=== PATIENT | female | born 1935 | race Caucasian/White ===

== ENCOUNTER 2021-10-26 21:17 | Observation (INO) ==
[2021-10-26] MEDS ORDERED: traMADol HCL 50 MG TABLET PO STA (22:27)
[2021-10-26] MEDS ORDERED: ACETAMINOPHEN 325 MG TAB PO STA (22:27)
--- NOTE | 2021-10-26 23:35 | CT Scan Report ---
CT SCAN OF THE BRAIN WITHOUT IV CONTRAST CLINICAL HISTORY: Fall. Head injury COMPARISON STUDY: No priors. TECHNIQUE: Unenhanced axial CT scan of the brain is performed from the vertex to the skull base. A do se lowering technique was utilized adhering to the principles of ALARA. CT DOSE: 537.48 mGy.cm FINDINGS: Brain parenchyma: There are age-related involutional changes noting mild subcortical and periventric ular microangiopathic change. There is no hemorrhage, mass effect, or evidence of acute territorial i schemia by CT criteria. Rosas-white matter differentiation is preserved. No extra-axial fluid collecti on is seen. Mineralization is noted in the basal ganglia. Ventricles, sulci, cisterns: Prominent secondary to involutional change. Intracranial vasculature: There is atherosclerotic calcification of the cavernous carotid and vertebr al arteries. Calvarium: The skeletal structures are osteopenic. No depressed calvarial fracture is identified. Sinuses and mastoids: There is mild mucosal thickening in the left ethmoid sinuses. The remaining vis ualized paranasal sinuses are clear. The mastoid air cells are well pneumatized. Orbits: The bony orbits are grossly intact. IMPRESSION: There is no hemorrhage, mass effect, or evidence of acute territorial ischemia by CT kang valadez. ACT 112: Negative or not required by law. Electronically signed by: Edilberto Weathers M.D. 10/26/2021 11:33 PM
--- NOTE | 2021-10-27 00:46 | CT Scan Report ---
CT SCAN OF THE RIGHT KNEE WITHOUT IV CONTRAST CLINICAL HISTORY: Fall. Right knee injury. COMPARISON STUDY: Radiographs of the right knee dated 10/26/2021. TECHNIQUE: CT scan of the right knee is performed from the distal femur to the proximal tibia and fi bula. Images are reviewed in the axial, sagittal, and coronal planes. IV contrast was not administere d for this examination. 3-D reformats are created and assessed. A dose lowering technique was utiliz ed adhering to the principles of ALARA. CT DOSE: 289.69 mGy.cm FINDINGS: The skeletal structures are osteopenic. There is a depressed fracture of the posterior tibi al plateau. This extends from the tibial spine into the medial tibial plateau. Fragments of the poste rior aspect of the medial tibial plateau are depressed by up to 5 mm. The distal femur, the proximal fibula, and the patella are intact. There is lipohemarthrosis. Prepatellar soft tissue edema is noted . There is generalized atrophy of the regional musculature. No organized hematoma is identified. IMPRESSION: 1. Depressed fracture of the posterior aspect of the medial tibial plateau as above with associated l ipohemarthrosis. 2. No additional fracture is identified. ACT 112: Negative or not required by law. Electronically signed by: Edilberto Weathers M.D. 10/27/2021 12:44 AM
--- NOTE | 2021-10-27 00:51 | XRay Report ---
RIGHT HIP 2 VIEWS CLINICAL HISTORY: Fall. Right leg pain. FINDINGS: AP and frog-leg views of the right hip are obtained. No prior studies are available for [facility] at the time of dictation. The skeletal structures are osteopenic. No fracture is seen involvi ng the right hip or the visualized right hemipelvis. Minimal degenerative joint space narrowing is se en in the right hip. Degenerative sclerosis is seen in the right sacroiliac joint. The overlying soft tissues are within normal limits. IMPRESSION: No acute bony abnormality is identified. Electronically signed by: Edilberto Weathers M.D. 10/27/2021 12:49 AM
--- NOTE | 2021-10-27 00:52 | XRay Report ---
RIGHT KNEE 2 VIEWS CLINICAL HISTORY: Fall with right knee injury. FINDINGS: AP and crosstable lateral views of the right knee are obtained. No prior studies are availa ble for comparison at the time of dictation. The skeletal structures are osteopenic. There is a large joint effusion with evidence of lipohemarthrosis. There is likely a fracture of the tibial plateau. No additional fracture is seen. Mild prepatellar soft tissue swelling is noted. IMPRESSION: Lipohemarthrosis with suspected tibial plateau fracture. Electronically signed by: Edilberto Weathers M.D. 10/27/2021 12:51 AM
--- NOTE | 2021-10-27 01:48 | Emergency Department Note ---
Impression & Plan Atrial fibrillation, controlled ED Provider Note CHIEF COMPLAINT: Fall, right knee pain HISTORY OF PRESENT ILLNESS: This 86-year-old female patient presents to the emergency department via private vehicle after falling at a restaurant. The patient states she may have tripped over her shoe and fell onto her right knee and then onto her abdomen and chest. She complains mostly of a right knee discomfort and inability to walk without assistance. Patient states she does take Eliquis due to a history of atrial fibrillation. She denies hitting her head or having any neck discomfort. Patient did not lose consciousness. She states she is visiting our area from [place] because her daughter is graduating with a masters degree tomorrow. REVIEW OF SYSTEMS: A review of systems was performed with positives and pertinent negatives listed in the history of present illness. 10 systems were reviewed and are otherwise negative. ALLERGIES: see below MEDICATIONS: see below PMH: see below SOCIAL HISTORY: see below DDx: Fracture, dislocation, contusion, intra-abdominal, pneumothorax, intrathoracic, intracranial, neurologic, compartment syndrome, rhabdomyolysis, as well as other pathologies. PHYSICAL EXAM: Vital signs reviewed. General: Well-appearing 86 yo female, in no significant distress. HEENT: No scleral icterus, PERRLA, neck supple. Atraumatic. Cardiovascular: Regular rate and rhythm, systolic ejection murmur Pulmonary: Clear to auscultation bilaterally, normal work of breathing. Abdomen: Soft, nontender, nondistended, positive bowel sounds. Musculoskeletal: Atraumatic, no peripheral edema. tender to palpation of proximal R tibial without deformity or significant hematoma. Full range of motion of the right knee. There is no ligamentous laxity appreciated to the right knee. Full range of motion of the right hip and no discomfort to pelvic rocking. Neurologic: Patient awake alert and oriented x 3, speech is clear Skin: Warm, dry, no rash EMERGENCY DEPARTMENT COURSE/MDM: Patient was evaluated and appeared to be in no significant distress. Physical examination reveals R knee contusion, XR concerning for abnl along the proximal tibia. CT imaging was ordered of the right knee and is consistent with a tibial plateau fracture. Please see the f ull read below. Patient will not be able to tolerate a nonweightbearing status due to her age and physical condition. She was placed in a knee immobilizer. IV access was ordered and laboratory work was drawn. The patient was discussed with the hospitalist service for evaluation and further management. Patient will likely need at minimum PT OT consultation and orthopedic evaluation. Patient and are aware of this plan and agreed. MONITORING: An order for cardiac monitoring was placed and the patient is noted to be in a normal sinus rhythm at 71 beats per minute. RADIOLOGY: See below EKG: NSR at 76 bpm, prolonged QTC, normal ST segments. + LVH. no PVC, no PAC. No previous available. DISPOSITION: Admit Past Med/Surg History Medical History (Updated 10/27/21 @ 01:39 by Diane Geller MD) Glaucoma Hypertension Social History (Updated 10/27/21 @ 01:47 by Diane Geller MD) Smoking Status: Never smoker marital status: Current Living Situation: Spouse Current Living Situation Comment: Lives in [place] Feels Safe at Home: Yes Results & Data (ED) Vital Signs Vital Signs - 24 hr 10/26/21 21:19 10/26/21 21:22 Temperature 36.9 C Temperature Source Temporal Artery Scan Pulse Rate 71 Respiratory Rate 18 16 Respiratory Effort / Characteristics Non-Labored Spontaneous Respiratory Depth Normal Blood Pressure 173/73 H Blood Pressure Mean 106 Pulse Oximetry 95 96 Oxygen Delivery Method Room Air Sepsis Recent Fever Within 48 Hours No Sepsis New/Unexplained Change in Mental Status No Sepsis Action Taken by Nursing No Action Required Home Medications Current Medication List: was personally reviewed by me Laboratory Data Attestation: I reviewed the patient's lab results. Administered Medications Discontinued Medications Acetaminophen (Acetaminophen 325 Mg Tab) 650 mg PO NOW STA Stop: 10/26/21 22:28 Last Admin: 10/26/21 22:53 Dose: 650 mg Documented by: [id number] Tramadol HCl (Tramadol Hcl 50 Mg Tablet) 50 mg PO NOW STA Stop: 10/26/21 22:28 Last Admin: 10/26/21 22:53 Dose: 50 mg Documented by: [id number] Imaging Data Radiologist's Impression: Head CT 10/26/21 22:27 CT SCAN OF THE BRAIN WITHOUT IV CONTRAST CLINICAL HISTORY: Fall. Head injury COMPARISON STUDY: No priors. TECHNIQUE: Unenhanced axial CT scan of the brain is performed from the vertex to the skull base. A dose lowering technique was utilized adhering to the principles of ALARA. CT DOSE: 537.48 mGy.cm FINDINGS: Brain parenchyma: There are age-related involutional changes noting mild subcortical and periventricular microangiopathic change. There is no hemorrhage, mass effect, or evidence of acute territorial ischemia by CT criteria. Rosas- white matter differentiation is preserved. No extra-axial fluid collection is seen. Mineralization is noted in the basal ganglia. Ventricles, sulci, cisterns: Prominent secondary to involutional change. Intracranial vasculature: There is atherosclerotic calcification of the cavernous carotid and vertebral arteries. Calvarium: The skeletal structures are osteopenic. No depressed calvarial fracture is identified. Sinuses and mastoids: There is mild mucosal thickening in the left ethmoid sinuses. The remaining visualized paranasal sinuses are clear. The mastoid air cells are well pneumatized. Orbits: The bony orbits are grossly intact. IMPRESSION: There is no hemorrhage, mass effect, or evidence of acute territorial ischemia by CT criteria. ACT 112: Negative or not required by law. Electronically signed by: Edilberto Weathers M.D. 10/26/2021 11:33 PM Hip X-Ray 10/26/21 22:27 RIGHT HIP 2 VIEWS CLINICAL HISTORY: Fall. Right leg pain. FINDINGS: AP and frog-leg views of the right hip are obtained. No prior studies are available for comparison at the time of dictation. The skeletal structures are osteopenic. No fracture is seen involving the right hip or the visualized right hemipelvis. Minimal degenerative joint space narrowing is seen in the right hip. Degenerative sclerosis is seen in the right sacroiliac joint. The overlying soft tissues are within normal limits. IMPRESSION: No acute bony abnormality is identified. Electronically signed by: Edilberto Weathers M.D. 10/27/2021 12:49 AM Knee X-Ray 10/26/21 22:27 RIGHT KNEE 2 VIEWS CLINICAL HISTORY: Fall with right knee injury. FINDINGS: AP and crosstable lateral views of the right knee are obtained. No prior studies are available for comparison at the time of dictation. The skeletal structures are osteopenic. There is a large joint effusion with evidence of lipohemarthrosis. There is likely a fracture of the tibial plateau. No additional fracture is seen. Mild prepatellar soft tissue swelling is noted. IMPRESSION: Lipohemarthrosis with suspected tibial plateau fracture. Electronically signed by: Edilberto Weathers M.D. 10/27/2021 12:[address] 10/27/21 00:08 CT SCAN OF THE RIGHT KNEE WITHOUT IV CONTRAST CLINICAL HISTORY: Fall. Right knee injury. COMPARISON STUDY: Radiographs of the right knee dated 10/26/2021. TECHNIQUE: CT scan of the right knee is performed from the distal femur to the proximal tibia and fibula. Images are reviewed in the axial, sagittal, and coronal planes. IV contrast was not administered for this examination. 3-D reformats are created and assessed. A dose lowering technique was utilized adhering to the principles of ALARA. CT DOSE: 289.69 mGy.cm FINDINGS: The skeletal structures are osteopenic. There is a depressed fracture of the posterior tibial plateau. This extends from the tibial spine into the medial tibial plateau. Fragments of the posterior aspect of the medial tibial plateau are depressed by up to 5 mm. The distal femur, the proximal fibula, and the patella are intact. There is lipohemarthrosis. Prepatellar soft tissue edema is noted. There is generalized atrophy of the regional musculature. No organized hematoma is identified. IMPRESSION: 1. Depressed fracture of the posterior aspect of the medial tibial plateau as above with associated lipohemarthrosis. 2. No additional fracture is identified. ACT 112: Negative or not required by law. Electronically signed by: Edilberto Weathers M.D. 10/27/2021 12:44 AM Blood Pressure Blood Pressure Findings: Elevated blood pressure Blood Pressure Disposition: elevated BP felt to be situational Discharge Plan Visit Data Chief Complaint: Fall Stated Complaint: FELL,ON BLOOD THINNER,R KNEE INJURY, HEARD CRACK ED Provider: Diane Geller Discharge Problem: Atrial fibrillation, controlled Forms Stand Alone Forms: [facility] Referrals Referrals: PCP,NO [Primary Care Provider] -
[2021-10-27 02:21] LABS: Basophils # (auto) 0.02 K/uL (0-0.2); Basophils % (auto) 0.2 %; Eosinophils # (auto) 0.36 K/uL (0-0.5); Eosinophils % (auto) 3.5 %; Hematocrit (blood only) 39.9 % (37-47); Hemoglobin 13.1 g/dL (12.0-16.0); Immature Granulocytes # (auto) 0.04 K/uL (0.00-0.02); Immature Granulocytes % (auto) 0.4 %; Lymphocytes # (auto) 2.28 K/uL (1.2-3.4); Lymphocytes % (auto) 22.1 %; Mean Corpuscular Hemoglobin 31.5 pg (25-34); Mean Corpuscular Hgb Conc 32.8 g/dL (32-36); Mean Corpuscular Volume 95.9 fL (80-100); Mean Platelet Volume 10.4 fL (7.4-10.4); Monocytes % (auto) 9.7 %; Neutrophils % (auto) 64.1 %; Platelet Count 280 K/uL (130-400); RDW Coefficient of Variation 13.4 % (11.5-14.5); RDW Standard Deviation 46.8 fL (36.4-46.3); Red Blood Count 4.16 M/uL (4.2-5.4)
[2021-10-27 02:37] LABS: Alanine Aminotransferase 20 U/L (7-52); Albumin Globulin Ratio 1.2 (0.9-2); Albumin Level 3.7 gm/dl (3.4-5.0); Alkaline Phosphatase 107 U/L (34-104); Anion Gap 9 (3-11); Aspartate Aminotransferase 23 U/L (13-39); BUN Creatinine Ratio 21.5 (10-20); Bilirubin,Total 0.3 mg/dl (0.2-1.0); Blood Urea Nitrogen 14 mg/dl (6-23); Calcium 8.7 mg/dl (8.5-10.1); Carbon Dioxide 22 mmol/L (21-32); Chloride 112 mmol/L (98-107); Est GFR (African American) 93.8 ml/min; Globulin 3.2 gm/dl (2.5-4.0); Glucose 113 mg/dl (70-99(Fasting)); Potassium 3.7 mmol/L (3.5-5.1); Sodium 143 mmol/L (136-145); Total Protein 6.9 gm/dl (6.0-8.3)
--- NOTE | 2021-10-27 02:47 | History & Physical Report ---
Date of Service October 27, 2021 Assessment & Plan (1) Tibial plateau fracture, right: Plan: Acute right tibial plateau fracture- Continue knee immobilizer Acetaminophen 650 mg p.o. every 6 hours as needed for mild pain or fever Tramadol 50 mg p.o. every 4 hours as needed moderate pain Morphine sulfate 2 mg IV every 4 hours as needed severe pain Consult orthopedic surgery Consult social work (2) Glaucoma: Plan: Continue usual eyedrops (3) Hypertension: Plan: Continue valsartan with hold parameters (4) Vision loss, left eye: Plan: Continue Eliquis (5) Hyperlipidemia: Plan: Continue atorvastatin (6) Allergic rhinitis: Plan: Allergic rhinitis/asthma- Continue Ventolin HFA 2 puffs every 4 hours as needed, loratadine 10 mg daily and montelukast 10 mg daily (7) Asthma: Plan: See above History of Present Illness Chief Complaint: The patient was brought to the emergency department with acute right knee pain that occurred immediately after she tripped over her shoe and fell while at a local restaurant Primary Care Provider: NO PCP The patient is an 86-year-old female with a past medical history including glaucoma, hyperlipidemia, allergic rhinitis, hypertension and history of acute vision loss in left eye for which she is on Eliquis. She is in town to see a family member presenting with an MS degree from [employer], however, while at a local restaurant, she tripped over her shoe, landing on her right knee, and sustaining immediate pain. X-ray in the emergency department suggested a tibial plateau fracture, which was confirmed on CT which showed a depressed fracture of the medial tibial plateau and associated lipohemarthrosis. The patient was placed on knee immobilizer in ED, and referred for evaluation for admission. She denies any other trauma associated with the fall. Allergies Allergy/AdvReac Type Severity Reaction Status Date / Time Environmental Allergy Sneezing, Uncoded 10/27/21 02:02 itchy eyes Home Medications Medication Instructions Recorded Confirmed Type albuterol sulfate 90 mcg/actuation 2 puff INHALATION Q4 PRN 10/27/21 10/27/21 History aerosol inhaler (Ventolin HFA) apixaban 2.5 mg tablet (Eliquis) 2.5 mg PO BID 10/27/21 10/27/21 History atorvastatin 20 mg tablet 20 mg PO DAILY 10/27/21 10/27/21 History cholecalciferol (vitamin D3) 25 25 mcg PO DAILY 10/27/21 10/27/21 History mcg (1,000 unit) tablet (Vitamin D3) coenzyme Q10 30 mg capsule (CoQ-10) 0 mg PO DAILY 10/27/21 10/27/21 History dorzolamide 22.3 mg-timolol 6.8 1 drp OPB TID 10/27/21 10/27/21 History mg/mL eye drops (Cosopt) latanoprost 0.005 % eye drops 1 drp OPB QPM 10/27/21 10/27/21 History loratadine 10 mg tablet (Claritin) 10 mg PO DAILY 10/27/21 10/27/21 History montelukast 10 mg tablet 10 mg PO DAILY 10/27/21 10/27/21 History peg 400-propylene glycol 0.4 %-0.3 1 drp OPB DIRECTED PRN 10/27/21 10/27/21 History % eye drops (Systane Ultra) valsartan 80 mg tablet 80 mg PO DAILY 10/27/21 10/27/21 History Past Med/Surg History Medical History (Updated 10/27/21 @ 04:47 by Glynn Jones MD) Allergic rhinitis Asthma Glaucoma Hyperlipidemia Hypertension Social History (Updated 10/27/21 @ 01:47 by Diane Geller MD) Smoking Status: Never smoker marital status: Current Living Situation: Spouse Current Living Situation Comment: Lives in [place] Feels Safe at Home: Yes Review of Systems Review of Systems: The patient denies chest pain, palpitations, shortness of breath, dyspnea on exertion, cough, lower extremity swelling, sore throat, fevers, chills, sweats, weight change, fatigue, nausea, vomiting, diarrhea , constipation, abdominal pain, pelvic pain, blood in urine or stool, dysuria, urinary frequency or urgency, lightheadedness, dizziness, headache, memory loss, loss of consciousness, rash, focal or generalized weakness, numbness or tingling in arms generalized arthralgias or myalgias, back or neck pain, or night sweats. The review of systems is otherwise negative other than for that already noted above, and at least 10 systems have been reviewed. Physical Exam Physical Exam: The patient is awake, alert and oriented 3, well developed and well nourished, normocephalic and atraumatic, lying in bed and in no acute distress. HEENT--PERRL, EOMI, mucous membranes and oropharynx normal. Neck--supple. No JVD. No bruits. Thyroid normal, trachea midline, no adenopathy. Heart--normal S1 and S2. No murmurs, rubs or gallops. Lungs--clear bilaterally, no respiratory distress, no accessory muscle use. Abdomen--normal bowel sounds and soft. Nontender. Nondistended, no hernias or masses, no organomegaly. Extremities--no cyanosis or clubbing. No edema. There are good distal pulses b/l. Dermatologic--normal skin turgor, normal color, no abnormal lymph nodes, no rash. Neurologic--cranial nerves II through XII grossly intact. Rheumatologic--right knee in immobilizer, otherwise normal exam Psychiatric--normal affect. Results & Data Results & Data ([facility]) Vital Signs (Past 12 Hours) Vital Signs Temp Pulse Pulse Resp BP BP Pulse Ox 10/27/21 01:00 70 16 165/85 H 95 10/26/21 21:22 36.9 C 71 16 173/73 H 96 10/26/21 21:19 18 95 Laboratory Results Laboratory Results WBC 10.30 K/uL (4.8-10.8) 10/27/21 01:50 RBC 4.16 M/uL (4.2-5.4) L 10/27/21 01:50 Hgb 13.1 g/dL (12.0-16.0) 10/27/21 01:50 Hct 39.9 % (37-47) 10/27/21 01:50 MCV 95.9 fL (80-100) 10/27/21 01:50 MCH 31.5 pg (25-34) 10/27/21 01:50 MCHC 32.8 g/dL (32-36) 10/27/21 01:50 RDW Std Deviation 46.8 fL (36.4-46.3) H 10/27/21 01:50 RDW Coeff of Jim 13.4 % (11.5-14.5) 10/27/21 01:50 Plt Count 280 K/uL (130-400) 10/27/21 01:50 MPV 10.4 fL (7.4-10.4) 10/27/21 01:50 Immature Gran % (Auto) 0.4 % 10/27/21 01:50 Neut % (Auto) 64.1 % 10/27/21 01:50 Lymph % (Auto) 22.1 % 10/27/21 01:50 [place] % (Auto) 9.7 % 10/27/21 01:50 Eos % (Auto) 3.5 % 10/27/21 01:50 Baso % (Auto) 0.2 % 10/27/21 01:50 Neut # (Auto) 6.60 K/uL (1.4-6.5) H 10/27/21 01:50 Lymph # (Auto) 2.28 K/uL (1.2-3.4) 10/27/21 01:50 [place] # (Auto) 1.00 K/uL (0.11-0.59) H 10/27/21 01:50 Eos # (Auto) 0.36 K/uL (0-0.5) 10/27/21 01:50 Baso # (Auto) 0.02 K/uL (0-0.2) 10/27/21 01:50 Immature Gran # (Auto) 0.04 K/uL (0.00-0.02) H 10/27/21 01:50 Sodium 143 mmol/L (136-145) 10/27/21 01:50 Potassium 3.7 mmol/L (3.5-5.1) 10/27/21 01:50 Chloride 112 mmol/L (98-107) H 10/27/21 01:50 Carbon Dioxide 22 mmol/L (21-32) 10/27/21 01:50 Anion Gap 9 (3-11) 10/27/21 01:50 BUN 14 mg/dl (6-23) 10/27/21 01:50 Creatinine 0.65 mg/dl (0.6-1.2) 10/27/21 01:50 Est Cr Clr Drug Dosing Not Reportable 10/27/21 01:50 Est GFR ( Amer) 93.8 ml/min 10/27/21 01:50 Est GFR (Non-Af Amer) 81.0 ml/min 10/27/21 01:50 BUN/Creatinine Ratio 21.5 (10-20) H 10/27/21 01:50 Glucose 113 mg/dl (70-99(Fasting)) H 10/27/21 01:50 Calcium 8.7 mg/dl (8.5-10.1) 10/27/21 01:50 Total Bilirubin 0.3 mg/dl (0.2-1.0) 10/27/21 01:50 AST 23 U/L (13-39) 10/27/21 01:50 ALT 20 U/L (7-52) 10/27/21 01:50 Alkaline Phosphatase 107 U/L (34-104) H 10/27/21 01:50 Total Protein 6.9 gm/dl (6.0-8.3) 10/27/21 01:50 Albumin 3.7 gm/dl (3.4-5.0) 10/27/21 01:50 Globulin 3.2 gm/dl (2.5-4.0) 10/27/21 01:50 Albumin/Globulin Ratio 1.2 (0.9-2) 10/27/21 01:50 SARS-CoV-2, RNA, NAAT NEGATIVE (NEGATIVE) 10/27/21 01:[address] 10/26/21 22:27 CT SCAN OF THE BRAIN WITHOUT IV CONTRAST CLINICAL HISTORY: Fall. Head injury COMPARISON STUDY: No priors. TECHNIQUE: Unenhanced axial CT scan of the brain is performed from the vertex to the skull base. A dose lowering technique was utilized adhering to the principles of ALARA. CT DOSE: 537.48 mGy.cm FINDINGS: Brain parenchyma: There are age-related involutional changes noting mild subcortical and periventricular microangiopathic change. There is no hemorrhage, mass effect, or evidence of acute territorial ischemia by CT criteria. Rosas- white matter differentiation is preserved. No extra-axial fluid collection is seen. Mineralization is noted in the basal ganglia. Ventricles, sulci, cisterns: Prominent secondary to involutional change. Intracranial vasculature: There is atherosclerotic calcification of the cavernous carotid and vertebral arteries. Calvarium: The skeletal structures are osteopenic. No depressed calvarial fracture is identified. Sinuses and mastoids: There is mild mucosal thickening in the left ethmoid sinuses. The remaining visualized paranasal sinuses are clear. The mastoid air cells are well pneumatized. Orbits: The bony orbits are grossly intact. IMPRESSION: There is no hemorrhage, mass effect, or evidence of acute territorial ischemia by CT criteria. ACT 112: Negative or not required by law. Electronically signed by: Edilberto Weathers M.D. 10/26/2021 11:33 PM Hip X-Ray 10/26/21 22:27 RIGHT HIP 2 VIEWS CLINICAL HISTORY: Fall. Right leg pain. FINDINGS: AP and frog-leg views of the right hip are obtained. No prior studies are available for comparison at the time of dictation. The skeletal structures are osteopenic. No fracture is seen involving the right hip or the visualized right hemipelvis. Minimal degenerative joint space narrowing is seen in the right hip. Degenerative sclerosis is seen in the right sacroiliac joint. The overlying soft tissues are within normal limits. IMPRESSION: No acute bony abnormality is identified. Electronically signed by: Edilberto Weathers M.D. 10/27/2021 12:49 AM Knee X-Ray 10/26/21 22:27 RIGHT KNEE 2 VIEWS CLINICAL HISTORY: Fall with right knee injury. FINDINGS: AP and crosstable lateral views of the right knee are obtained. No prior studies are available for comparison at the time of dictation. The skeletal structures are osteopenic. There is a large joint effusion with evidence of lipohemarthrosis. There is likely a fracture of the tibial plateau. No additional fracture is seen. Mild prepatellar soft tissue swelling is noted. IMPRESSION: Lipohemarthrosis with suspected tibial plateau fracture. Electronically signed by: Edilberto Weathers M.D. 10/27/2021 12:[address] 10/27/21 00:08 CT SCAN OF THE RIGHT KNEE WITHOUT IV CONTRAST CLINICAL HISTORY: Fall. Right knee injury. COMPARISON STUDY: Radiographs of the right knee dated 10/26/2021. TECHNIQUE: CT scan of the right knee is performed from the distal femur to the proximal tibia and fibula. Images are reviewed in the axial, sagittal, and coronal planes. IV contrast was not administered for this examination. 3-D refor mats are created and assessed. A dose lowering technique was utilized adhering to the principles of ALARA. CT DOSE: 289.69 mGy.cm FINDINGS: The skeletal structures are osteopenic. There is a depressed fracture of the posterior tibial plateau. This extends from the tibial spine into the medial tibial plateau. Fragments of the posterior aspect of the medial tibial plateau are depressed by up to 5 mm. The distal femur, the proximal fibula, and the patella are intact. There is lipohemarthrosis. Prepatellar soft tissue edema is noted. There is generalized atrophy of the regional musculature. No organized hematoma is identified. IMPRESSION: 1. Depressed fracture of the posterior aspect of the medial tibial plateau as above with associated lipohemarthrosis. 2. No additional fracture is identified. ACT 112: Negative or not required by law. Electronically signed by: Edilberto Weathers M.D. 10/27/2021 12:44 AM Code Status & VTE Plan Code Status Full code VTE Prophylaxis Plan VTE Prophylaxis will be ordered: Yes PG Care Time/CCT Total # of Minutes Spent Total Time Spent with Patient: Total time spent is greater than 50% in coordination of care (as documented) at patient's floor/unit and/or counseling patient: Coding Level of Care Code INT OBSERVATION CARE 70M LVL 3 Diagnoses Tibial plateau fracture, right S82.141A Glaucoma H40.9 Hypertension I10 Vision loss, left eye H54.62 Hyperlipidemia E78.5 Allergic rhinitis J30.9 Asthma J45.909
[2021-10-27] MEDS ORDERED: MoRPHine SULFATE 2 MG/ML CARP IV PRN (05:00)
[2021-10-27] MEDS ORDERED: ACETAMINOPHEN 325 MG TAB PO PRN (05:00)
[2021-10-27] MEDS ORDERED: ALBUTEROL HFA 8 GM INHALER INH PRN (05:00)
[2021-10-27] MEDS ORDERED: ONDANSETRON INJ 2 MG/ML 2 ML VIAL IV PRN (05:00)
[2021-10-27] MEDS ORDERED: traMADol HCL 50 MG TABLET PO PRN (05:00)
[2021-10-27] MEDS ORDERED: ARTIFICIAL TEARS OP PRN (05:09)
[2021-10-27] MEDS: APIXABAN 2.5 MG TAB PO SCH (09:06)
[2021-10-27] MEDS: CHOLECALCIFEROL 1,000 UNITS 25 MCG TAB PO SCH (09:07)
[2021-10-27] MEDS: ATORVASTATIN 20 MG TAB PO SCH (09:07)
[2021-10-27] MEDS: LORATADINE 10 MG TAB PO SCH (09:08)
[2021-10-27] MEDS: VALSARTAN 80 MG TAB PO SCH (09:09)
[2021-10-27] MEDS: DORZOLAMIDE/TIMOLOL 22.3/6.8MG/ML 10 ML BTL OPB SCH ×3 (09:48→20:27)
--- NOTE | 2021-10-27 16:37 | Communication Note ---
Date of Service: October 27, 2021 Will require orthopedic surgery evaluation on 10/28. Currently tolerating diet, will be NPO after midnight except meds. She did receive Eliquis 2.5 mg x 1 dose at 9 am this morning, will hold further doses to prepare for surgical intervention. She c/o left anterior rib pain - denies injury to specific location during her fall. Recommend CXR for pre op evaluation and to rule out rib fracture.
--- NOTE | 2021-10-27 16:58 | XRay Report ---
XR chest 2V PA/lateral HISTORY: 86 years-old Female Left anterior rib pain and for pre op purposes acute left-sided rib and chest wall pain COMPARISON: None TECHNIQUE: AP and lateral views of the chest FINDINGS: Cardiac silhouette is enlarged. Nonspecific interstitial coarsening. No pneumothorax, large pleural e ffusion or lobar airspace consolidation. Bones of the chest appear grossly intact. Cholecystectomy. S ubcentimeter calcified granuloma of the right upper lung. IMPRESSION: Cardiomegaly with nonspecific interstitial coarsening. ACT 112: Negative or not required by law. The above report was generated using voice recognition software. It may contain grammatical, syntax o r spelling errors. Electronically signed by: Keenan Lott M.D. 10/27/2021 4:57 PM
--- NOTE | 2021-10-27 20:48 | Orthopedic Consultation ---
Date of Service October 27, 2021 Assessment & Plan (1) Tibial plateau fracture, right: Fortunately this fracture only involves a very small portion of the posterior aspect of her knee. She can be weightbearing as tolerated with this. She does not need the knee immobilizer. She can do full range of motion of her right knee. I talked to the nursing staff. I told them that she could get out of bed with assistance tonight to see how it feels. She can sit in a chair. She does not need the knee immobilizer for ambulation. She should be seen by physical therapy first thing tomorrow morning. If she does well with physical therapy and her knee is feeling comfortable she would still like to make her flight back to [place] that leaves early tomorrow afternoon. I think that is reasonable if she does well. If she does not then will slow things down a little bit. She can follow-up with an orthopedist back in [place] when she gets home. History of Present Illness Reason for Consultation: Right proximal tibia fracture. Requesting Physician: . Attending Physician: Glynn Jones MD Briana is a pleasant 86-year-old female who is in town from [place] for graduation. She tripped and fell at a restaurant. She was having knee pain. She came to the emergency room. Initial x-rays of the knee were negative. CT scan then showed a very small nondisplaced fracture of the posterior aspect of the right knee. Orthopedics was consulted to evaluate and treat. Allergies Allergy/AdvReac Type Severity Reaction Status Date / Time Environmental Allergy Sneezing, Uncoded 10/27/21 02:02 itchy eyes Home Medications Medication Instructions Recorded Confirmed Type albuterol sulfate 90 mcg/actuation 2 puff INHALATION Q4 PRN 10/27/21 10/27/21 History aerosol inhaler (Ventolin HFA) apixaban 2.5 mg tablet (Eliquis) 2.5 mg PO BID 10/27/21 10/27/21 History atorvastatin 20 mg tablet 20 mg PO DAILY 10/27/21 10/27/21 History cholecalciferol (vitamin D3) 25 25 mcg PO DAILY 10/27/21 10/27/21 History mcg (1,000 unit) tablet (Vitamin D3) coenzyme Q10 30 mg capsule (CoQ-10) 0 mg PO DAILY 10/27/21 10/27/21 History dorzolamide 22.3 mg-timolol 6.8 1 drp OPB TID 10/27/21 10/27/21 History mg/mL eye drops (Cosopt) latanoprost 0.005 % eye drops 1 drp OPB QPM 10/27/21 10/27/21 History loratadine 10 mg tablet (Claritin) 10 mg PO DAILY 10/27/21 10/27/21 History montelukast 10 mg tablet 10 mg PO DAILY 10/27/21 10/27/21 History peg 400-propylene glycol 0.4 %-0.3 1 drp OPB DIRECTED PRN 10/27/21 10/27/21 H istory % eye drops (Systane Ultra) valsartan 80 mg tablet 80 mg PO DAILY 10/27/21 10/27/21 History Past Med/Surg History Medical History Allergic rhinitis Asthma Glaucoma Hyperlipidemia Hypertension Social History Smoking Status: Never smoker Hx Alcohol Use: No Hx Substance Use: No Preferred Language: Slovenian Communication Ability: Effective Oxyacetylene Burner Required: No Beliefs That Will Affect Care: Pentecostalism Pentecostalism Beliefs: Rastafarian marital status: Current Living Situation: Spouse Current Living Situation Comment: Lives in [place] with Feels Safe at Home: Yes Assistive Devices: Glasses Review of Systems All systems reviewed & are unremarkable except as noted in HPI & below. Physical Exam On physical examination of the right knee, there was a knee immobilizer in place that I removed. I was able to easily range her knee from 0 to 45 degrees without much pain. There was no effusion. She had no varus valgus instability. She had a little bit of pain in the posterior aspect of her knee and a little bit of pain with posterior drawer testing. Constitutional WD/WN, vitals as above Eyes PERRL, conjunctivae normal, anicteric sclerae ENMT external ear and nose normal, oropharynx normal Neck trachea midline, no thyromegaly Respiratory normal respiratory effort Cardiovascular RRR, no murmur, no edema Gastrointestinal (Abdomen) normal bowel sounds, soft, nontender, no hepatosplenomegaly Psychiatric A+Ox3, euthymic affect Results & Data Results & Data Laboratory Results . Diagnostic Findings X-rays of the right knee are essentially negative. CT scan of the right knee shows a nondisplaced acute fracture of the posterior aspect of the right knee. It appears to be around the insertion of the PCL. PG Care Time/CCT Total # of Minutes Spent Total Time Spent with Patient: Total time spent is greater than 50% in coordination of care (as documented) at patient's floor/unit and/or counseling patient: Coding Level of Care Code 65649 Inpt Consult Level 4 Diagnoses Tibial plateau fracture, right S82.141A
[2021-10-27] MEDS ORDERED: LATANOPROST 0.005% OP SOLN 2.5 ML BTL OPB SCH (21:00)
[2021-10-27] MEDS ORDERED: MONTELUKAST SODIUM 10 MG TABLET PO SCH (21:00)
[2021-10-28] MEDS: CHOLECALCIFEROL 1,000 UNITS 25 MCG TAB PO SCH (08:24)
[2021-10-28] MEDS: ATORVASTATIN 20 MG TAB PO SCH (08:24)
[2021-10-28] MEDS: DORZOLAMIDE/TIMOLOL 22.3/6.8MG/ML 10 ML BTL OPB SCH (08:25)
[2021-10-28] MEDS: VALSARTAN 80 MG TAB PO SCH (08:26)
[2021-10-28] MEDS: LORATADINE 10 MG TAB PO SCH (08:26)
[2021-10-28 08:48] LABS: Hemoglobin 13.1 g/dL (12.0-16.0); Mean Corpuscular Hemoglobin 31.6 pg (25-34); Mean Corpuscular Hgb Conc 32.8 g/dL (32-36); Mean Corpuscular Volume 96.6 fL (80-100); Mean Platelet Volume 10.4 fL (7.4-10.4); Platelet Count 300 K/uL (130-400); RDW Coefficient of Variation 13.5 % (11.5-14.5); RDW Standard Deviation 47.9 fL (36.4-46.3); Red Blood Count 4.14 M/uL (4.2-5.4); White Blood Count 7.63 K/uL (4.8-10.8)
[2021-10-28 08:50] LABS: Partial Thromboplastin Ratio 1.1; Partial Thromboplastin Time 30.3 Seconds (21.0-31.0); Prothrombin Time 10.8 Seconds (9.0-12.0)
[2021-10-28 08:53] LABS: Albumin Globulin Ratio 1.2 (0.9-2); Albumin Level 3.7 gm/dl (3.4-5.0); BUN Creatinine Ratio 24.6 (10-20); Bilirubin,Total 0.6 mg/dl (0.2-1.0); Calcium 8.7 mg/dl (8.5-10.1); Creatinine Clr Calc Pharmacy 58.4 ml/min; Est GFR (African American) 93.8 ml/min; Globulin 3.1 gm/dl (2.5-4.0); Total Protein 6.8 gm/dl (6.0-8.3)
--- NOTE | 2021-10-28 09:16 | Discharge Summary ---
Date of Service October 28, 2021 Admission HPI Per Admitting Provider The patient is an 86-year-old female with a past medical history including glaucoma, hyperlipidemia, allergic rhinitis, hypertension and history of acute vision loss in left eye for which she is on Eliquis. She is in town to see a family member presenting with an MS degree from [employer], however, while at a local restaurant, she tripped over her shoe, landing on her right knee, and sustaining immediate pain. X-ray in the emergency department suggested a tibial plateau fracture, which was confirmed on CT which showed a depressed fracture of the medial tibial plateau and associated lipohemarthrosis. The patient was placed on knee immobilizer in ED, and referred for evaluation for admission. She denies any other trauma associated with the fall. Principal Diagnosis Right tibial plateau fx s/p fall Discharge Exam GENERAL: 86 yo well-developed, well-nourished WF. NAD. LUNGS: Clear to auscultation bilaterally. No W/R/R. CARDIOVASCULAR: Regular rate and rhythm. ABDOMEN: Soft, non-tender and non-distended. BS normoactive x 4 quad. EXTREMITIES: No edema. Non-tender. Peripheral pulses +2/4. NEUROLOGIC: A&O x3. PSYCHIATRIC: Cooperative. Appropriate mood and affect. SKIN: Warm, dry, intact. No rashes or lesions. Discharge Data Allergies Allergy/AdvReac Type Severity Reaction Status Date / Time Environmental Allergy Sneezing, Uncoded 10/27/21 02:02 itchy eyes Consultations 10/27/21 01:18 ED Decision to Admit Stat 10/27/21 13:35 Consult Orthopedic Surgery Routine Ordered Studies Head CT 10/26/21 22:27 CT SCAN OF THE BRAIN WITHOUT IV CONTRAST CLINICAL HISTORY: Fall. Head injury COMPARISON STUDY: No priors. TECHNIQUE: Unenhanced axial CT scan of the brain is performed from the vertex to the skull base. A dose lowering technique was utilized adhering to the principles of ALARA. CT DOSE: 537.48 mGy.cm FINDINGS: Brain parenchyma: There are age-related involutional changes noting mild subcortical and periventricular microangiopathic change. There is no hemorrhage, mass effect, or evidence of acute territorial ischemia by CT criteria. Rosas- white matter differentiation is preserved. No extra-axial fluid collection is seen. Mineralization is noted in the basal ganglia. Ventricles, sulci, cisterns: Prominent secondary to involutional change. Intracranial vasculature: There is atherosclerotic calcification of the cavernous carotid and vertebral arteries. Calvarium: The skeletal structures are osteopenic. No depressed calvarial fracture is identified. Sinuses and mastoids: There is mild mucosal thickening in the left ethmoid sinuses. The remaining visualized paranasal sinuses are clear. The mastoid air cells are well pneumatized. Orbits: The bony orbits are grossly intact. IMPRESSION: There is no hemorrhage, mass effect, or evidence of acute territorial ischemia by CT criteria. ACT 112: Negative or not required by law. Electronically signed by: Edilberto Weathers M.D. 10/26/2021 11:33 PM Hip X-Ray 10/26/21 22:27 RIGHT HIP 2 VIEWS CLINICAL HISTORY: Fall. Right leg pain. FINDINGS: AP and frog-leg views of the right hip are obtained. No prior studies are available for comparison at the time of dictation. The skeletal structures are osteopenic. No fracture is seen involving the right hip or the visualized right hemipelvis. Minimal degenerative joint space narrowing is seen in the right hip. Degenerative sclerosis is seen in the right sacroiliac joint. The o verlying soft tissues are within normal limits. IMPRESSION: No acute bony abnormality is identified. Electronically signed by: Edilberto Weathers M.D. 10/27/2021 12:49 AM Knee X-Ray 10/26/21 22:27 RIGHT KNEE 2 VIEWS CLINICAL HISTORY: Fall with right knee injury. FINDINGS: AP and crosstable lateral views of the right knee are obtained. No prior studies are available for comparison at the time of dictation. The skeletal structures are osteopenic. There is a large joint effusion with evidence of lipohemarthrosis. There is likely a fracture of the tibial plateau. No additional fracture is seen. Mild prepatellar soft tissue swelling is noted. IMPRESSION: Lipohemarthrosis with suspected tibial plateau fracture. Electronically signed by: Edilberto Weathers M.D. 10/27/2021 12:[address] 10/27/21 00:08 CT SCAN OF THE RIGHT KNEE WITHOUT IV CONTRAST CLINICAL HISTORY: Fall. Right knee injury. COMPARISON STUDY: Radiographs of the right knee dated 10/26/2021. TECHNIQUE: CT scan of the right knee is performed from the distal femur to the proximal tibia and fibula. Images are reviewed in the axial, sagittal, and coronal planes. IV contrast was not administered for this examination. 3-D reformats are created and assessed. A dose lowering technique was utilized adhering to the principles of ALARA. CT DOSE: 289.69 mGy.cm FINDINGS: The skeletal structures are osteopenic. There is a depressed fracture of the posterior tibial plateau. This extends from the tibial spine into the medial tibial plateau. Fragments of the posterior aspect of the medial tibial plateau are depressed by up to 5 mm. The distal femur, the proximal fibula, and the patella are intact. There is lipohemarthrosis. Prepatellar soft tissue edema is noted. There is generalized atrophy of the regional musculature. No organized hematoma is identified. IMPRESSION: 1. Depressed fracture of the posterior aspect of the medial tibial plateau as above with associated lipohemarthrosis. 2. No additional fracture is identified. ACT 112: Negative or not required by law. Electronically signed by: Edilberto Weathers M.D. 10/27/2021 12:44 AM Chest X-Ray 10/27/21 16:13 XR chest 2V PA/lateral HISTORY: 86 years-old Female Left anterior rib pain and for pre op purposes acute left-sided rib and chest wall pain COMPARISON: None TECHNIQUE: AP and lateral views of the chest FINDINGS: Cardiac silhouette is enlarged. Nonspecific interstitial coarsening. No pneumothorax, large pleural effusion or lobar airspace consolidation. Bones of the chest appear grossly intact. Cholecystectomy. Subcentimeter calcified granuloma of the right upper lung. IMPRESSION: Cardiomegaly with nonspecific interstitial coarsening. ACT 112: Negative or not required by law. The above report was generated using voice recognition software. It may contain grammatical, syntax or spelling errors. Electronically signed by: Keenan Lott M.D. 10/27/2021 4:57 PM Hospital Course (1) Tibial plateau fracture, right: Acute right tibial plateau fracture- -appreciate input from orthopedic surgeon -pt can be WBAT -no need for knee immobilizer or brace -will scan all images to disc and have her take w/ her back home -use apap as needed for pain, if need something stronger, will need to contact her pcp upon return home -PT eval, pt tolerated ambulation well and is felt to be safe for d/c * recommend that she negotiate through the airport in a wheelchair and ambulate w/ assistance (family will be with her) * could discuss home health referral for pt/ot from her family doctor upon her return home (2) Glaucoma: -Continue usual eyedrops (3) Hypertension: -Continue valsartan with hold parameters (4) Vision loss, left eye: -Continue Eliquis (5) Hyperlipidemia: -Continue atorvastatin (6) Allergic rhinitis: Allergic rhinitis/asthma- -Continue Ventolin HFA 2 puffs every 4 hours as needed, loratadine 10 mg daily and montelukast 10 mg daily (7) Asthma: -See above At this time, pt is medically and hemodynamically stable for discharge home. Pt can follow up with pcp upon her return home, would advise f/u within 1 week of discharge from the hospital. Advise that she contact an orthopedic surgeon of her choice upon her return home and f/u with them in a timely manner. Should take disc with her to that appointment that contains all knee images. Above plan of care has been d/w Dr. Wilson who has also seen and evaluated this patient and is in agreement with the aforementioned. Total Time Total Time Spent Total Time Spent (In Minutes): <30 minutes Discharge Plan Discharge Items Patient Disposition: Home - Self-Care Reason For Visit: RT TIBIAL PLATEAU FX, AMBULATORY DYSFUNCTION Discharge Diagnosis: R tibial plateu fracture s/p fall Activity: As commented below Lifting Comment: weight bearing as tolerated Non-emergency contact: Primary Care Provider Call non-emergency contact if: you have any medication questions, your symptoms worsen and your pain is worsening Follow-up/Referrals: PCP,NO [Primary Care Provider] - Diet: Regular Addtl Attending Provider Instructions: You were hospitalized due to a fall that resulted in a fracture of your right knee area. Fortunately, you will not need to have any surgical intervention for this fracture. You have been seen by orthopedics and it is recommended that you bear weight on your right knee/leg as tolerated. You do not need to wear a brace. You are being provided a CD that holds all of the images of your knee that were taken during your hospitalization. We would recommend that you contact an orthopedic surgeon when you return home in order to follow up. Please take the disc with you to your appointment. We would also recommend that you follow up with your family doctor upon your return home within 1 week of discharge. You can use Tylenol as needed for pain. If your pain is not controlled with Tylenol, you will need to contact your family doctor to see if they can prescribe you something stronger. In the event that you have any questions or concerns, please contact the nonemergency number on your discharge paperwork. In the event of a medical emergency, call 911. Pending Studies at Discharge: No Stand-Alone Forms: My [facility], Smoking Cessation Medications and DC Order Prescriptions: Continued latanoprost 0.005 % drops 1 drp OPB QPM RF: 0 atorvastatin 20 mg tablet 20 mg PO DAILY RF: 0 valsartan 80 mg tablet 80 mg PO DAILY RF: 0 dorzolamide-timolol [Cosopt] 22.3-6.8 mg/mL drops 1 drp OPB TID RF: 0 montelukast 10 mg tablet 10 mg PO DAILY RF: 0 albuterol sulfate [Ventolin HFA] 90 mcg/actuation Hfa Aerosol Inhaler 2 puff INHALATION Q4 PRN (Reason: Shortness Of Breath Or Wheezing) RF: 0 loratadine [Claritin] 10 mg Tablet 10 mg PO DAILY RF: 0 coenzyme Q10 [CoQ-10] 30 mg Capsule 0 mg PO DAILY RF: 0 Systane Ultra 0.4-0.3 % drops 1 drp OPB DIRECTED PRN (Reason: Dry Eyes) RF: 0 cholecalciferol (vitamin D3) [Vitamin D3] 25 mcg (1,000 unit) Tablet 25 mcg PO DAILY RF: 0 Eliquis 2.5 mg tablet 2.5 mg PO BID RF: 0 Discharge Orders: Discharge Order (Routine); Ordered 10/28/21 Ordered By: Sarina Quiñonez/Other Patient Handouts: Understanding Deep Vein Thrombosis, Preventing Deep Vein Thrombosis Admission Data Admit Date/Time: 10/27/21 02:15 Attending Provider: Terry Wilson Admit Provider: Glynn Jones Primary Care Provider: PCP,NO Other Providers: Glynn Jones ; Marvin Loera Other Interventions: Discharge Summary Assessment (RN) Last Done: 10/28/21 09:20 Supervising Physician Co-Signing Physician Notes I personally saw and examined the patient. I verified all schaffer points and agree with Sarina Judd PA-C with the following exceptions and/or additions: 86-year-old female admission due to tibial plateau fracture. Reviewed by orthopedics due to posterior medial nature of this patient can be weightbearing as tolerated. Pain improved during her admission. She requested discharge due to needing to catch a plane back to [place] later this afternoon. On review by physical therapy she required close supervision however have good safety judgment. She will follow-up with her physicians in [place]. CD with images provided to patient. Coding Level of Care Code 59283 OBS Care - Discharge Diagnoses Tibial plateau fracture, right S82.141A Glaucoma H40.9 Hypertension I10 Vision loss, left eye H54.62 Hyperlipidemia E78.5 Allergic rhinitis J30.9 Asthma J45.909
[2021-10-28] MEDS: APIXABAN 2.5 MG TAB PO SCH (09:28)
--- NOTE | 2021-10-29 06:13 | Electrocardiogram Report ---
Test Reason : Blood Pressure : / mmHG Vent. Rate : 076 BPM Atrial Rate : 076 BPM P-R Int : 204 ms QRS Dur : 088 ms QT Int : 456 ms P-R-T Axes : 038 -26 018 degrees QTc Int : 513 ms Poor data quality, interpretation may be adversely affected Normal sinus rhythm Voltage criteria for left ventricular hypertrophy Abnormal ECG No previous ECGs available Confirmed by Mike Roberto ([id number]) on 10/29/2021 6:13:19 AM Referred By: REFERRED SELF Confirmed By:Mike Roberto
== END 2021-10-28 10:55 | disposition home or self-care (01) ==
LOC: ED 21:17 → EDINP 21:17 → SUATTDRO 10-27 02:15 → 3E 10-27 05:01